=== PATIENT | female | born 1985 | race African-American/Black ===

== ENCOUNTER 2016-10-22 13:24 | Emergency (ER) | payer MEDICAID ==
[~2016-10-22] VITALS: Ht 170.2 cm; Wt 90.0 kg
[~2016-10-22 13:24] MED LIST: HYDR25TA5 PO
[2016-10-22 13:30] VITALS: BP 152/107; PULSE 91; RESP 14; TEMP 98.4; O2SAT 100
--- NOTE | 2016-10-22 14:17 | PD ---
HPI Chief Complaint: Hypertension Time Seen by Provider: 14:14 Travel History International Travel<30 days: No Contact w/Intl Traveler<30days: No Traveled to known affect area: No History of Present Illness HPI 31-year-old female with a past medical history of hypertension presents to the emergency department for evaluation of hypertension. Patient states she is currently on hydrochlorothiazide for hypertension. She states that her blood pressure prior to coming to the emergency department via EMS was 205 systolic. She does complain of a generalized headache. She states that she gets similar headaches approximately every 2 weeks and this is not the worst headache of her life. She states that yesterday, her right ankle is swollen, but this has resolved. She denies any associated pain at this time. She denies any chest pain or shortness of breath. Patient does state that she had seizures when she was with her son 13 years ago, but denies any current history of seizures. PFSH Past Medical History Asthma: Yes Autoimmune Disease: No Blood Disorders: No Cancer: No Cardiovascular Problems: Yes (HTN) Diminished Hearing: No Endocrine: No Gastrointestinal Disorders: No Genitourinary: No Headaches: Yes Hypertension: Yes Kidney Stones: No Musculoskeletal: No Neurologic: Yes Psychiatric: No Respiratory: Yes (ASTHMA) Migraines: Yes Renal Failure: No Seizures: Yes ?: Not LMP: 09/28/16 : 4 Para: 2 Miscarriage: 2 : 0 Tubal Ligation: Yes Past Surgical History Section: Yes Other Surgery: No Social History Alcohol Use: No Tobacco Use: No Substance Use: No Allergies-Medications (Allergen,Severity, Reaction): Coded Allergies: Naproxen (Verified Allergy, Severe, Itching, 10/22/16) Voltaren (Verified Allergy, Severe, Hives, 10/22/16) Reported Meds & Prescriptions Reported Meds & Active Scripts Active Hydrochlorothiazide 25 Mg Tab 25 Mg PO DAILY Review of Systems Except as stated in HPI: all other systems reviewed are Neg Physical Exam Narrative GENERAL: Well-developed well-nourished female patient, ambulatory. Afebrile. SKIN: Warm and dry. HEAD: Normocephalic. Atraumatic. EYES: No scleral icterus. No injection or drainage. NECK: Supple, trachea midline. No JVD or lymphadenopathy. CARDIOVASCULAR: Regular rate and rhythm without murmurs, gallops, or rubs. RESPIRATORY: Breath sounds equal bilaterally. No accessory muscle use. Lungs sounds are clear to auscultation. GASTROINTESTINAL: Abdomen soft, non-tender, nondistended. MUSCULOSKELETAL: No cyanosis, or edema. BACK: Nontender without obvious deformity. No CVA tenderness. Data Data Last Documented VS Vital Signs Date Time Temp Pulse Resp B/P Pulse Ox O2 Delivery O2 Flow Rate FiO2 10/22/16 13:30 98.4 91 14 152/107 100 Room Air Orders Electrocardiogram (10/22/16 ) Complete Blood Count With Diff (10/22/16 14:12) Basic Metabolic Panel (Bmp) (10/22/16 14:12) Labs Laboratory Tests Test 10/22/16 14:25 White Blood Count 7.2 TH/MM3 Red Blood Count 4.82 MIL/MM3 Hemoglobin 9.6 GM/DL Hematocrit 31.4 % Mean Corpuscular Volume 65.1 FL Mean Corpuscular Hemoglobin 20.0 PG Mean Corpuscular Hemoglobin 30.7 % Concent Red Cell Distribution Width 19.0 % Platelet Count 362 TH/MM3 Mean Platelet Volume 7.9 FL Neutrophils (%) (Auto) 48.2 % Lymphocytes (%) (Auto) 37.6 % Monocytes (%) (Auto) 11.3 % Eosinophils (%) (Auto) 2.0 % Basophils (%) (Auto) 0.9 % Neutrophils # (Auto) 3.5 TH/MM3 Lymphocytes # (Auto) 2.7 TH/MM3 Monocytes # (Auto) 0.8 TH/MM3 Eosinophils # (Auto) 0.1 TH/MM3 Basophils # (Auto) 0.1 TH/MM3 CBC Comment AUTO DIFF Differential Comment AUTO DIFF CONFIRMED Sodium Level 139 MEQ/L Potassium Level 3.6 MEQ/L Chloride Level 107 MEQ/L Carbon Dioxide Level 25.3 MEQ/L Anion Gap 7 MEQ/L Blood Urea Nitrogen 11 MG/DL Creatinine 0.97 MG/DL Estimat Glomerular Filtration 81 ML/MIN Rate Random Glucose 78 MG/DL Calcium Level 8.9 MG/DL [facility] Medical Decision Making Medical Screen Exam Complete: Yes Emergency Medical Condition: Yes Medical Record Reviewed: Yes Differential Diagnosis Hypertension versus hypertensive urgency versus migraine headache versus tension headache versus electrolyte abnormality Narrative Course 31-year-old female presents to the emergency department for evaluation of high blood pressure and headache. Patient states is a chronic headache and she gets similar headaches approximately every 2 weeks. EKG, CBC, BMP are ordered and pending. Workup is initiated in triage. Patient will be moved to medical pod for further evaluation and disposition. Patient left AGAINST MEDICAL ADVICE before being transferred to medical pod. Diagnosis Primary Impression: Left against medical advice Disposition: 07 AGAINST MEDICAL ADVICE Lisa Gallagher Oct 22, 2016 14:17
[2016-10-22 14:57] LABS: AUTOMATED NEUTROPHIL # 3.5 TH/MM3 (1.8-7.7); BASOPHIL # 0.1 TH/MM3 (0-0.2); BASOPHIL % 0.9 % (0.0-2.0); EOSINOPHIL # 0.1 TH/MM3 (0-0.4); HEMATOCRIT 31.4 % (35.0-46.0); LYMPH % 37.6 % (9.0-44.0); LYMPHOCYTE # 2.7 TH/MM3 (1.0-4.8); MEAN CELL VOLUME 65.1 FL (80.0-100.0); MEAN CORPUSCULAR HGB CONC 30.7 % (32.0-36.0); MONO % 11.3 % (0.0-8.0); NEUT % 48.2 % (16.0-70.0); PLATELET COUNT 362 TH/MM3 (150-450); RED BLOOD COUNT 4.82 MIL/MM3 (4.00-5.30); WHITE BLOOD COUNT 7.2 TH/MM3 (4.0-11.0)
[2016-10-22 15:05] LABS: HEMO FLAGS AUTO DIFF
[2016-10-22 15:24] LABS: BICARBONATE 25.3 MEQ/L (21.0-32.0); POTASSIUM 3.6 MEQ/L (3.5-5.1)
[2016-10-22 15:53] LABS: SCAN/DIFF AUTO DIFF CONFIRMED
--- NOTE | 2016-10-22 16:53 | EKG ---
Date Performed: 10/22/2016 Time Performed: 13:53:18 PTAGE: 31 years EKG: Sinus rhythm NORMAL ECG COMPARED TO PRIOR ELECTROCARDIOGRAM, Rate has slowed. PREVIOUS TRACING : 03/05/2016 13.00 DOCTOR: Chance Dewitt Interpretating Date/Time 10/22/2016 16:52:16
[2017-02-04] MEDS ORDERED: HYDR50TA3 PO (16:09)
[2017-02-04] MEDS ORDERED: CLON.1 PO (16:12)
[2017-02-04] MEDS ORDERED: CHLO25TA2 PO (16:23)
[2017-02-04] MEDS ORDERED: DILT-30 PO (16:23)
[2017-02-10] MEDS ORDERED: DILT-60 PO (09:23)
== END 2016-10-22 17:49 | disposition left against medical advice (07) ==
LOC: NETRI 13:24
DX: I10 Essential (primary) hypertension (principal); R51 Headache; Z87.09 Personal history of other diseases of the respiratory system; Z86.69 Personal history of other diseases of the nervous system and sense organs; Z53.20 Procedure and treatment not carried out because of patient's decision for unspecified reasons
CPT/HCPCS: 80048; 85025; 93005

== ENCOUNTER 2017-01-22 08:54 | Emergency (ER) | payer MEDICAID ==
[~2017-01-22] VITALS: Ht 170.2 cm; Wt 90.0 kg
[2017-01-22 08:56] VITALS: BP 213/139; PULSE 78; RESP 20; TEMP 98.5; O2SAT 98
[2017-01-22] MEDS ORDERED: METHOCARBAMOL 500 MG TAB PO ONE (09:45)
[2017-01-22] MEDS ORDERED: IBUPROFEN 800 MG TAB PO ONE (09:45)
[2017-01-22] MEDS ORDERED: IBUP800T23 PO (09:46)
[2017-01-22] MEDS ORDERED: ROBA500T PO (09:46)
--- NOTE | 2017-01-22 09:46 | PD ---
HPI Chief Complaint: Back/ Neck Pain or Injury Time Seen by Provider: 09:44 Travel History International Travel<30 days: No Contact w/Intl Traveler<30days: No Traveled to known affect area: No History of Present Illness HPI 31-year-old female presents to emergency department with exacerbation of low back pain 2 weeks. Reports history of chronic low back pain since 2009 after receiving multiple epidural attempts while giving . She has had a recent exacerbation of pain since to her low back at times. Denies new or recent injury. Denies heavy lifting. Denies encopresis, incontinence, saddle anesthesias. Denies IV drug use or cancer. Denies fever, vomiting, abdominal pain. Denies urinary symptoms. Denies paresthesias, loss of sensation, decreased range of motion, decreased strength to bilateral lower summaries. Is ambulatory with a normal gait. Patient has history of hypertension and takes hydrochlorothiazide 25 mg daily. She did not take the hydrochlorothiazide this morning. She denies chest pain, shortness of breath, headache, lightheadedness , dizziness, diaphoresis. Has a follow-up appointment with primary care provider on February 04. Has no other medical complaints. Allergies to naproxen and Voltaren. Says she can take ibuprofen. No other modifying factors or associated signs and symptoms. PFSH Past Medical History Asthma: Yes Autoimmune Disease: No Blood Disorders: No Cancer: No Cardiovascular Problems: Yes (HTN) Diminished Hearing: No Endocrine: No Gastrointestinal Disorders: No Genitourinary: No Headaches: Yes Hypertension: Yes Kidney Stones: No Musculoskeletal: No Neurologic: Yes Psychiatric: No Respiratory: Yes (ASTHMA) Migraines: Yes Renal Failure: No Seizures: Yes ?: Not LMP: 01/12/17 : 4 Para: 2 Miscarriage: 2 : 0 Tubal Ligation: Yes Past Surgical History Surgical History: No Previous Surgery Section: Yes Other Surgery: No Social History Alcohol Use: No Tobacco Use: No Substance Use: No Allergies-Medications (Allergen,Severity, Reaction): Coded Allergies: Naproxen (Verified Allergy, Severe, Itching, 01/22/17) Voltaren (Verified Allergy, Severe, Hives, 01/22/17) Reported Meds & Prescriptions Reported Meds & Active Scripts Active Ibuprofen 800 Mg Tab 800 Mg PO Q6HR PRN Robaxin (Methocarbamol) 500 Mg Tab 500 Mg PO QID PRN Hydrochlorothiazide 25 Mg Tab 25 Mg PO DAILY Review of Systems Except as stated in HPI: all other systems reviewed are Neg Physical Exam Narrative GENERAL: Well-nourished, well-developed female patient, in no acute distress; afebrile, nontoxic-appearing SKIN: Warm and dry. HEAD: Atraumatic. Normocephalic. EYES: Pupils equal and round. No scleral icterus. No injection or drainage. ENT: Mucosa pink and moist. Airway patent. NECK: Trachea midline. CARDIOVASCULAR: Regular rate. RESPIRATORY: No accessory muscle use. GASTROINTESTINAL: Rounded. MUSCULOSKELETAL: Bilateral lower extremities supple and non-tense with 2+ pedal pulses and sensory intact; with full range of motion and 5/5 strength. Active dorsiflexion and extension of bilateral feet. Bilateral straight leg raise is negative for low back pain. Ambulatory with normal gait. Sitting up in bed at 90. No obvious deformities. No clubbing. No cyanosis. No edema. BACK: No midline point tenderness on palpation of the lumbar or thoracic spine. Tenderness on palpation of bilateral iliosacral area. No obvious deformities. NEUROLOGICAL: Awake and alert. Oriented 3. No obvious cranial nerve deficits. Motor grossly within normal limits. Normal speech. Moves all extremities. 5/5 strength to all extremities. Sensory intact. PSYCHIATRIC: Appropriate mood and affect; insight and judgment normal. Data Data Last Documented VS Vital Signs Date Time Temp Pulse Resp B/P Pulse Ox O2 Delivery O2 Flow Rate FiO2 01/22/17 09:54 79 196/117 01/22/17 08:56 98.5 20 98 Room Air Orders Ibuprofen (Motrin) (01/22/17 09:45) Methocarbamol (Robaxin) (01/22/17 09:45) Hydrochlorothiazide (Hydrodiuril) (01/22/17 10:00) MDM Medical Decision Making Medical Screen Exam Complete: Yes Emergency Medical Condition: Yes Medical Record Reviewed: Yes Differential Diagnosis Acute exacerbation of chronic low back pain, low back strain, chronic back pain Narrative Course 31-year-old female with acute exacerbation of chronic low back pain. Denies new or recent injury. Denies encopresis, incontinence, saddle anesthesias. Denies fever, vomiting. Patient is afebrile and nontoxic-appearing. She is ambulatory in the room with normal gait. No midline point tenderness on palpation of the lumbar spine. Patient's blood pressure is elevated at 213/139 in the ER. She does take hydrochlorothiazide 25 mg daily for hypertension and did not take her medication this morning. She is asymptomatic. Ibuprofen and Robaxin ordered and administered in the ER. 0952: Blood pressure recheck 196/117. I spoke with Dr. Dawson, my attending physician, and she agrees with my treatment plan. The patient will be administered hydrochlorothiazide 25 mg in the ER. Instructed patient to follow up with her primary care provider at her scheduled appointment on February 04. Signs and symptoms of hypertensive crisis were discussed and the patient was instructed to return to the emergency department with symptom development. Instructed patient to discuss high blood pressure findings in the ER with her primary care provider at next appointment. She verbalizes understanding and agreement. Robaxin and ibuprofen prescribed for home. Patient verbalizes understanding and agreement with treatment plan. Patient is medically cleared and stable for discharge. Discussed reasons to return to the emergency department. Instructed patient to follow up with primary care provider. Patient agrees with treatment plan. The patients vital signs are stable and the patient is stable for outpatient follow-up and treatment. Patient discharged home, stable and in no acute distress. Diagnosis Primary Impression: Acute exacerbation of chronic low back pain Referrals: Primary Care Physician Patient Instructions: Acute Low Back Pain (ED), General Instructions Departure Forms: Tests/Procedures, Work Release Enter return to work date: January 23, 2017 Additional Instructions: Tylenol or ibuprofen as directed and as needed to reduce pain Robaxin as prescribed for muscle spasms Get adequate rest Ice and/or heating pad to affected area to reduce pain Avoid aggravating activity; increase activity as tolerated Follow-up with primary care provider Return to the emergency department immediately with worsening symptoms Med/Other Pt SpecificInfo: Prescription(s) given Scripts Ibuprofen 800 Mg [id number] Mg PO Q6HR PRN (PAIN) #30 TAB Ref 0 Prov:Hamida Steward 01/22/17 Methocarbamol (Robaxin)500 Mg [id number] Mg PO QID PRN (MUSCLE SPASM) #30 TAB Ref 0 Prov:Hamida Steward 01/22/17 Disposition: 01 DISCHARGE HOME Condition: Stable Hamiad Steward January 22, 2017 09:46
[2017-01-22 09:54] VITALS: BP 196/117; PULSE 79
[2017-01-22] MEDS ORDERED: HYDROCHLOROTHIAZIDE 25 MG TAB PO ONE (10:00)
[2017-02-04] MEDS ORDERED: HYDR50TA3 PO (16:09)
[2017-02-04] MEDS ORDERED: CLON.1 PO (16:12)
[2017-02-04] MEDS ORDERED: CHLO25TA2 PO (16:23)
[2017-02-04] MEDS ORDERED: DILT-30 PO (16:23)
[2017-02-10] MEDS ORDERED: DILT-60 PO (09:23)
== END 2017-01-22 10:09 | disposition home or self-care (01) ==
LOC: NEPK 08:54
DX: M54.5 Low back pain (principal); G89.29 Other chronic pain; I10 Essential (primary) hypertension; J45.909 Unspecified asthma, uncomplicated
CPT/HCPCS: 99283

== ENCOUNTER 2017-06-27 13:22 | Emergency (ER) | payer MEDICAID ==
[~2017-06-27] VITALS: Ht 170.2 cm; Wt 85.0 kg
[~2017-06-27 13:22] MED LIST changes: +CHLO25TA2 PO; +DILT-30 PO; +DILT-60 PO; -HYDR25TA5 PO; +IBUP800T23 PO; +ROBA500T PO
[2017-06-27 13:36] VITALS: BP 164/111; PULSE 89; RESP 15; TEMP 98.6; O2SAT 99
[2017-06-27 13:45] VITALS: O2SAT 100
[2017-06-27] MEDS ORDERED: SODIUM CHLORIDE 0.9% FLUSH 10 ML FLUSH IVF PRN (13:45)
[2017-06-27] MEDS ORDERED: ACETAMINOPHEN 500 MG CPLT PO ONE (13:45)
--- NOTE | 2017-06-27 13:46 | PD ---
HPI Chief Complaint: Dizziness Time Seen by Provider: 13:32 Travel History International Travel<30 days: No Contact w/Intl Traveler<30days: No Traveled to known affect area: No History of Present Illness HPI Patient comes in complaining of near-syncopal episode that occurred shortly prior to arrival. Patient states that she was outside at a football game when she went to get her son a drink and on the way back she got dizzy and fell. Patient Denies Any Actual Loss of Consciousness. Denies Any Chest Pain Pre-or Post Fall. Patient complaining a headache status post fall from where she hit her head on the right. Patient is complaining of left wrist pain described as a throbbing soreness. Denies any radiation of pain. Pain is worse palpation. Denies anything making it better. Denies any nausea, vomiting, change in vision ,numbness or tingling anywhere, neck pain, back pain, shortness of breath, abdominal pain, or . Patient reports she has a tubal ligation. Patient reports history of syncopal episode with secondary to her hypertension. Patient reports that she is not currently on a blood pressure medication secondary to waiting for her primary care doctor to change her medication. Patient states she was on hydrochlorothiazide made her feel sick so she quit taking it. Patient reports she has been off of that her blood pressure medication for several months. PFSH Past Medical History Asthma: Yes Autoimmune Disease: No Blood Disorders: No Cancer: No Cardiovascular Problems: Yes (htn) Diminished Hearing: No Endocrine: No Gastrointestinal Disorders: No Genitourinary: No Headaches: Yes Hypertension: Yes Kidney Stones: No Musculoskeletal: No Neurologic: Yes Psychiatric: No Respiratory: Yes (asthma) Migraines: Yes Renal Failure: No Seizures: Yes ?: Not : 4 Para: 2 Miscarriage: 2 : 0 Tubal Ligation: Yes Past Surgical History Section: Yes Other Surgery: No Social History Alcohol Use: No Tobacco Use: No Substance Use: No Allergies-Medications (Allergen,Severity, Reaction): Coded Allergies: diclofenac (Unverified Allergy, Severe, Hives, 06/27/17) naproxen (Unverified Allergy, Severe, Itching, 06/27/17) Reported Meds & Prescriptions Reported Meds & Active Scripts Active Norvasc (Amlodipine Besylate) 5 Mg Tab 5 Mg PO DAILY Review of Systems Except as stated in HPI: all other systems reviewed are Neg Physical Exam Narrative GENERAL: Well-developed, overly nourished, in no acute distress, and non-ill appearing. SKIN: Focused skin assessment warm and dry. HEAD: Atraumatic. Normocephalic. EYES: Pupils equal and round. EOMI. No scleral icterus. No injection or drainage. ENT: No nasal bleeding or discharge. Mucous membranes pink and moist. NECK: Trachea midline. Supple. No nuclear rigidity. No crepitus or tenderness over midline cervical spine. CARDIOVASCULAR: Regular rate and rhythm. No murmur appreciated. RESPIRATORY: No accessory muscle use. No respiratory distress. Clear to auscultation. Breath sounds equal bilaterally. MUSCULOSKELETAL: No obvious deformities. No clubbing. No cyanosis. No edema. Full range of motion. Wrist: FROM and equal BL with passive flexion, extension, and pronation/supination. Capillary refill less than 2 seconds distal to injury and equal BL. FROM distal to injury and equal BL. Strength distal to injury equal BL. NV intact distal to injury. Flexion and extension of thumb equal BL. Equal strength and movement with abduction/adductions of BL fingers. Tool Die Maker strength equal BL. No tenderness to the anatomical snuffbox. Patient reports tenderness over dorsal aspect of left wrist. NEUROLOGICAL: Awake and alert. No obvious cranial nerve deficits. Motor grossly within normal limits. Normal speech. PSYCHIATRIC: Appropriate mood and affect; insight and judgment normal. Data Data Last Documented VS Vital Signs Date Time Temp Pulse Resp B/P (MAP) Pulse Ox O2 Delivery O2 Flow Rate FiO2 06/27/17 15:41 06/27/17 14:08 78 18 85 18 103 18 06/27/17 13:45 100 Room Air 06/27/17 13:36 98.6 Orders Orders Electrocardiogram (06/27/17 13:32) Basic Metabolic Panel (Bmp) (06/27/17 13:32) Complete Blood Count With Diff (06/27/17 13:32) Magnesium (Mg) (06/27/17 13:32) Urinalysis - C+S If Indicated (06/27/17 13:32) Ct Brain W/O Iv Contrast(Rout) (06/27/17 13:32) Ecg Monitoring (06/27/17 13:32) Iv Access Insert/Monitor (06/27/17 13:32) Oximetry (06/27/17 13:32) Sodium Chloride 0.9% Flush (Ns Flush) (06/27/17 13:45) Orthostatic Vital Signs (06/27/17 13:32) Ice/Cold Pack (06/27/17 13:32) Wrist, Complete ([id number]) (06/27/17 ) Acetaminophen (Tylenol) (06/27/17 13:45) Ed Discharge Order (06/27/17 15:25) Labs Laboratory Tests Test 06/27/17 13:45 06/27/17 14:20 White Blood Count 6.0 TH/MM3 Red Blood Count 5.16 MIL/MM3 Hemoglobin 10.0 GM/DL Hematocrit 33.3 % Mean Corpuscular Volume 64.5 FL Mean Corpuscular Hemoglobin 19.4 PG Mean Corpuscular Hemoglobin Concent 30.1 % Red Cell Distribution Width 19.6 % Platelet Count 459 TH/MM3 Mean Platelet Volume 7.4 FL Neutrophils (%) (Auto) 44.3 % Lymphocytes (%) (Auto) 40.5 % Monocytes (%) (Auto) 10.8 % Eosinophils (%) (Auto) 3.2 % Basophils (%) (Auto) 1.2 % Neutrophils # (Auto) 2.7 TH/MM3 Lymphocytes # (Auto) 2.4 TH/MM3 Monocytes # (Auto) 0.6 TH/MM3 Eosinophils # (Auto) 0.2 TH/MM3 Basophils # (Auto) 0.1 TH/MM3 CBC Comment DIFF FINAL Differential Comment Blood Urea Nitrogen 9 MG/DL Creatinine 0.92 MG/DL Random Glucose 108 MG/DL Calcium Level 9.4 MG/DL Magnesium Level 2.2 MG/DL Sodium Level 139 MEQ/L Potassium Level 4.5 MEQ/L Chloride Level 109 MEQ/L Carbon Dioxide Level 22.6 MEQ/L Anion Gap 7 MEQ/L Estimat Glomerular Filtration Rate 86 ML/MIN Urine Color YELLOW Urine Turbidity HAZY Urine pH 6.5 Urine Specific [place] 1.029 Urine Protein 30 mg/dL Urine Glucose (UA) NEG mg/dL Urine Ketones NEG mg/dL Urine Occult Blood NEG Urine Nitrite NEG Urine Bilirubin NEG Urine Urobilinogen 2.0 MG/DL Urine Leukocyte Esterase NEG Urine Squamous Epithelial Cells 4 /hpf Urine Hyaline Casts 1 /lpf Urine Mucus MANY /lpf Microscopic Urinalysis Comment CULT NOT INDICATED MDM Medical Decision Making Medical Screen Exam Complete: Yes Emergency Medical Condition: Yes Interpretation(s) EKG reviewed by Dr. Hernandez shows normal sinus rhythm with ventricular rate of 91. No STEMI. Differential Diagnosis Syncope, near-syncope, fracture, strain, contusion, closed head injury, dizziness, other Narrative Course Patient presented with dizziness described as near syncope. There was no true syncope. The patient denied any symptoms of chest pain, SOB/difficulty breathing , palpitations or skipped heartbeats. The patient denied any headache prior to fall. The patient denied any bloody or tarry stools. There was no evidence to suggest neurologic or cardiac etiology or GIB. The diagnosis and findings were discussed with the patient and the patient was instructed to follow up with their primary physician. Patient presents with minor CHI and has a headache consistent with post- traumatic headache. There was no loss of consciousness at any time. The patient has had no significant nausea or vomiting. The patient has no neurological complaints. There is no significant headache history otherwise noted. The patient is not on anticoagulation therapy. The patient has been behaving normally and no notable altered mental status. [place] score of 15. The neurologic exam is normal. There is no clinical evidence to support intracranial injury or bleed. There is no c-spine pain or tenderness and no significant distracting injury to suggest associated cervical spine injury. The patient has a prior history of hypertension and admits to noncompliance with their antihypertensive medications. The patient denied headache, changes in vision, nausea, vomiting, weakness or loss of sensation. The patient denied and chest, back or abdominal pain. The patient also denied any shortness of breath, dyspnea on exertion, orthopnea or PND. The patient denies any edema to extremities. The patient was given a prescription of Norvasc 5 mg to start until she can follow up with her primary care doctor later this week. I discussed with the patient the importance of continuing daily antihypertensive and to not skip doses or stop medications suddenly without instruction by their primary care physician. The patient was instructed to follow up and potential adjustment of blood pressure medications. Return warnings were given to the patient and the patient agreed with plan of care. Patient in no obvious distress upon re-evaluation. Reports all symptoms have resolved. All pertinent laboratory/Radiology result(s) discussed with patient. Discussed patient with Dr. Hernandez prior to discharge, who is in agreement with plan of care and disposition. Patient was asked if they wanted to speak to my attending, which the patient did not wish to do at this time. Any questions/concerns in reference to patient diagnosis/condition discussed and clarified prior to patient's discharge. Reinforced sheer importance of close follow up with patient's primary physician or primary care clinic. Instructed patient to return to ED immediately, if symptoms return/worsen. Patient showed understanding of above instructions. Further instructions and recommendations were detailed in discharge paperwork. Patient ambulated without difficulty out of ED at discharge. Diagnosis Primary Impression: Dizziness Additional Impressions: CHI (closed head injury) Qualified Codes: S09.90XA - Unspecified injury of head, initial encounter Hypertension Qualified Codes: I10 - Essential (primary) hypertension Contusion of wrist, left Qualified Codes: S60.212A - Contusion of left wrist, initial encounter Patient Instructions: Contusion in Adults (ED), Dizziness (ED), General Instructions, Head Injury (DC), Hypertension (ED) Additional Instructions: Follow-up with your primary care physician this week for reevaluation and adjustment of blood pressure medicine. Take all medication as prescribed. Return to the emergency department if symptoms get worse. Scripts Amlodipine (Norvasc) 5 Mg Tab 5 MG PO DAILY for Blood Pressure Management, #30 TAB 0 Refills Prov: Vivek Hernandez MD 06/27/17 Disposition: 01 DISCHARGE HOME Condition: Stable Tyree Unger Jun 27, 2017 13:46
[2017-06-27 14:08] VITALS: BP_SYST 151; BP_SYST 177; BP_SYST 178; BP_DIAS 102; BP_DIAS 116; BP_DIAS 117; RESP 18
[2017-06-27 14:08] LABS: AUTOMATED NEUTROPHIL # 2.7 TH/MM3 (1.8-7.7); BASOPHIL # 0.1 TH/MM3 (0-0.2); BASOPHIL % 1.2 % (0.0-2.0); EOSINOPHIL # 0.2 TH/MM3 (0-0.4); EOSINOPHIL % 3.2 % (0.0-4.0); HEMATOCRIT 33.3 % (35.0-46.0); HEMO FLAGS DIFF FINAL; LYMPH % 40.5 % (9.0-44.0); LYMPHOCYTE # 2.4 TH/MM3 (1.0-4.8); MEAN CELL VOLUME 64.5 FL (80.0-100.0); MEAN CORPUSCULAR HEMOGLOBIN 19.4 PG (27.0-34.0); MEAN CORPUSCULAR HGB CONC 30.1 % (32.0-36.0); MONO % 10.8 % (0.0-8.0); NEUT % 44.3 % (16.0-70.0); PLATELET COUNT 459 TH/MM3 (150-450); RED BLOOD COUNT 5.16 MIL/MM3 (4.00-5.30); RED CELL DISTRIBUTION WIDTH 19.6 % (11.6-17.2)
--- NOTE | 2017-06-27 14:11 | RADRPT ---
EXAM DATE/TIME: 06/27/2017 13:58 [facility] COMPARISON: No previous studies available for comparison. INDICATIONS : Left wrist pain after fall. Pain around whole wrist. MEDICAL HISTORY : Hypertension. Seizures. Migraines SURGICAL HISTORY : Tubal ligation. ENCOUNTER: Initial ACUITY: 1 day PAIN SCORE: 9/10 LOCATION: Left wrist. FINDINGS: Three view examination of the left wrist demonstrates no soft tissue swelling, dislocation, or fractu re. The carpal bones are in normal alignment. The joint spaces are maintained. Bony mineralization is normal. CONCLUSION: 1. Negative examination of the wrist. Brennon Nava MD on June 27, 2017 at 14:09 Board Certified Radiologist. This report was verified electronically.
--- NOTE | 2017-06-27 14:30 | EKG ---
Date Performed: 06/27/2017 Time Performed: 13:33:31 PTAGE: 32 years EKG: Sinus rhythm NORMAL ECG INTERPRETATION BASED ON A DEFAULT AGE OF 40 YEARS No significant change from prior electr ocardiogram. PREVIOUS TRACING : 10/22/2016 13.53 DOCTOR: Chance Dewitt Interpretating Date/Time 06/27/2017 14:29:20
[2017-06-27 14:36] LABS: BICARBONATE 22.6 MEQ/L (21.0-32.0); MAGNESIUM 2.2 MG/DL (1.5-2.5); POTASSIUM 4.5 MEQ/L (3.5-5.1)
--- NOTE | 2017-06-27 14:47 | RADRPT ---
EXAM DATE/TIME: 06/27/2017 14:27 [place] COMPARISON: CT BRAIN W/O CONTRAST, March 05, 2016, 13:11. INDICATIONS : Dizziness. RADIATION DOSE: 56.35 CTDIvol (mGy) MEDICAL HISTORY : Cardiovascular disease. Seizures. Hypertension. SURGICAL HISTORY : Tubal ligation. ENCOUNTER: Initial ACUITY: 1 day PAIN SCALE: 0/10 LOCATION: cranial TECHNIQUE: Multiple contiguous axial images were obtained of the head. Using automated exposure control and adj ustment of the mA and/or kV according to patient size, radiation dose was kept as low as reasonably a chievable to obtain optimal diagnostic quality images. DICOM format image data is available electro nically for review and comparison. FINDINGS: CEREBRUM: The ventricles are normal for age. No evidence of midline shift, mass lesion, hemorrhage or acute in farction. No extra-axial fluid collections are seen. POSTERIOR FOSSA: The cerebellum and brainstem are intact. The 4th ventricle is midline. The cerebellopontine angle i s unremarkable. EXTRACRANIAL: The visualized portion of the orbits is intact. SKULL: The calvaria is intact. No evidence of skull fracture. CONCLUSION: 1. No evidence of acute intracranial pathology. No masses are identified. Brennon Nava MD on June 27, 2017 at 14:44 Board Certified Radiologist. This report was verified electronically.
[2017-06-27 14:49] LABS: BLOOD, URINE NEG (NEG); COMMENT (UR) CULT NOT INDICATED; CULTURE IF INDICATED CULT NOT INDICATED; GLUCOSE,URINE NEG (NEG); HYALINE CAST, URINE 1 /lpf (RARE); KETONE, URINE NEG (NEG); MUCUS URINE MANY /lpf (OCC); NITRITE,URINE NEG (NEG); PH, URINE 6.5 (5.0-8.5); SQUAMOUS EPITHELIAL CELL URINE 4 /hpf (0-5); URINE COLOR YELLOW (YELLW/STRAW)
[2017-06-27] MEDS ORDERED: AMLO5 PO (15:21)
== END 2017-06-27 15:45 | disposition home or self-care (01) ==
LOC: NEPC 13:22
DX: S09.90XA Unspecified injury of head, initial encounter (principal); S60.212A Contusion of left wrist, initial encounter; R42 Dizziness and giddiness; R55 Syncope and collapse; J45.909 Unspecified asthma, uncomplicated; I10 Essential (primary) hypertension; W18.30XA Fall on same level, unspecified, initial encounter
CPT/HCPCS: 70450; 73110; 80048; 81001; 83735; 85025; 93005; 99285